=== PATIENT | female | born 1945 | race Caucasian/White ===

== ENCOUNTER 2016-08-28 11:34 | Day surgery (SDC) | payer MEDICARE, OTHER ==
--- NOTE | ~2016-08-28 | EGD ---
EGD REPORT [facility] [address] [address] NAME: STEW YOON : [birth year] [place] [facility] [place] [id number] AGE: 71 ADM/REG DATE : 08/28/16 MR#: [id number] REPORT SERV DATE: 08/28/16 DICTATED BY: ANNA MARIE CRUZ DATE: 08/28/16 REPORT STATUS : Draft TRANSCRIBED BY: [facility] DATE: 08/28/16 Endoscopy Center Patient Name: Stew Yoon Date of : 1945 Attending MD: CARLITOS CRUZ MD Procedure Date No Time: 08/28/2016 Procedure: Colonoscopy Indications: Hematochezia Referring MD: JAYANT MYRICK Medicines: See the Anesthesia note for documentation of the administered medications Complications: No immediate complications. Estimated blood loss: None. Procedure: Pre-Anesthesia Assessment: - ASA Grade Assessment: II - A patient with mild systemic disease. - Prior to the procedure, a History and Physical was performed, and patient medications and allergies were reviewed. The patient's tolerance of previous anesthesia was also reviewed. The risks and benefits of the procedure and the sedation options and risks were discussed with the patient. All questions were answered, and informed consent was obtained. Prior Anticoagulants: The patient has taken no previous anticoagulant or antiplatelet agents. After reviewing the risks and benefits, the patient was deemed in satisfactory condition to undergo the procedure. After I obtained informed consent, the scope was passed under direct vision. Throughout the procedure, the patient's blood pressure, pulse, and oxygen saturations were monitored continuously. The PCF [id number] was introduced through the anus and advanced to the cecum, identified by appendiceal orifice and ileocecal valve. The ileocecal valve, appendiceal orifice and rectum were photographed. The entire colon was examined. The colonoscopy was performed without difficulty. The patient tolerated the procedure well. The quality of the bowel preparation was adequate. Findings: The perianal and digital rectal examinations were normal. Multiple medium-mouthed diverticula were found in the entire colon. Non-bleeding internal hemorrhoids were found during retroflexion and were Grade I (internal hemorrhoids that do not prolapse). No other significant abnormalities were identified in a careful examination of the remainder of the colon. EGD REPORT [address] [address] NAME: STEW YOON : [birth year] STATUS : REG [facility]#: [id number] AGE: 71 ADM/REG DATE : 08/28/16 MR#: [id number] REPORT SERV DATE: 08/28/16 DICTATED BY: ANNA MARIE CRUZ DATE: 08/28/16 REPORT STATUS : Draft TRANSCRIBED BY: [facility] DATE: 08/28/16 Impression: - Diverticulosis in the entire examined colon. - Non-bleeding internal hemorrhoids. Recommendation: - Patient has a contact number available for emergencies. The signs and symptoms of potential delayed complications were discussed with the patient. Return to normal activities tomorrow. Written discharge instructions were provided to the patient. - High fiber diet indefinitely. - Discharge patient to home. - Continue present medications. - Repeat colonoscopy in 10 years for surveillance. Procedure Code(s): --- Professional --- 08705, Colonoscopy, flexible, proximal to splenic flexure; diagnostic, with or without collection of specimen(s) by brushing or washing, with or without colon decompression (separate procedure) Diagnosis Code(s): --- Professional --- K64.0, First degree hemorrhoids K57.30, Diverticulosis of large intestine without perforation or abscess without bleeding K92.1, Melena CPT copyright 2013 [employer]. All rights reserved. The codes documented in this report are preliminary and upon windshield technician review may be revised to meet current compliance requirements. CARLITOS CRUZ MD 08/28/2016 2:25 PM This report has been signed electronically. Number of Addenda: 0 Note Initiated On: 08/28/2016 1:43 PM Scope Withdrawal Time 0 hours 6 minutes 49 seconds [address] [address]
--- NOTE | ~2016-08-28 | EGD ---
EGD REPORT [facility] [address] [address] NAME: STEW YOON : [birth year] STATUS : REG [facility] [place] PAT#: [id number] AGE: 71 ADM/REG DATE : 08/28/16 MR#: [id number] REPORT SERV DATE: 08/28/16 DICTATED BY: ANNA MARIE CRUZ DATE: 08/28/16 REPORT STATUS : Draft TRANSCRIBED BY: [facility] DATE: 08/28/16 Endoscopy Center Patient Name: Stew Yoon Date of : 1945 Attending MD: CARLITOS CRUZ MD Procedure Date No Time: 08/28/2016 Procedure: Upper GI endoscopy Indications: Dysphagia Referring MD: JAYANT MYRICK Medicines: See the Anesthesia note for documentation of the administered medications Complications: No immediate complications. Estimated blood loss: Minimal. Procedure: Pre-Anesthesia Assessment: - ASA Grade Assessment: II - A patient with mild systemic disease. - Prior to the procedure, a History and Physical was performed, and patient medications and allergies were reviewed. The patient's tolerance of previous anesthesia was also reviewed. The risks and benefits of the procedure and the sedation options and risks were discussed with the patient. All questions were answered, and informed consent was obtained. Prior Anticoagulants: The patient has taken aspirin, last dose was 3 days prior to procedure. After reviewing the risks and benefits, the patient was deemed in satisfactory condition to undergo the procedure. After obtaining informed consent, the endoscope was passed under direct vision. Throughout the procedure, the patient's blood pressure, pulse, and oxygen saturations were monitored continuously. The GIF H190 [id number] was introduced through the mouth, and advanced to the third part of duodenum. The upper GI endoscopy was accomplished without difficulty. The patient tolerated the procedure well. Findings: The examined duodenum was normal. The entire examined stomach was normal. Biopsies were taken with a cold forceps for histology. The cardia and gastric fundus were normal on retroflexion. Diffuse mild erythema was found at the gastroesophageal junction. Biopsies were taken with a cold forceps for histology. A benign-appearing, intrinsic mild stenosis was found in the middle third of the esophagus and was traversed. A guidewire was placed and the EGD REPORT [address] [address] NAME: STEW YOON : [birth year] STATUS : REG [facility] [place] PAT#: [id number] AGE: 71 ADM/REG DATE : 08/28/16 MR#: [id number] REPORT SERV DATE: 08/28/16 DICTATED BY: ANNA MARIE CRUZ DATE: 08/28/16 REPORT STATUS : Draft TRANSCRIBED BY: [employer] DATE: 08/28/16 scope was withdrawn. Dilation was performed with a Savary dilator with no resistance at 51 Fr and mild resistance at 57 Fr. Estimated blood loss was minimal. Impression: - Normal examined duodenum. - Normal stomach. Biopsied. - Erythema at the gastroesophageal junction. Biopsied. - Benign-appearing esophageal stricture. Dilated. Recommendation: - Patient has a contact number available for emergencies. The signs and symptoms of potential delayed complications were discussed with the patient. Return to normal activities tomorrow. Written discharge instructions were provided to the patient. - Regular diet. - Discharge patient to home. - Continue present medications. - Await pathology results. Procedure Code(s): --- Professional --- 84925, Esophagogastroduodenoscopy, flexible, transoral; with insertion of guide wire followed by passage of dilator(s) through esophagus over guide wire 50698, Esophagogastroduodenoscopy, flexible, transoral; with biopsy, single or multiple Diagnosis Code(s): --- Professional --- K22.9, Disease of esophagus, unspecified K22.2, Esophageal obstruction R13.10, Dysphagia, unspecified CPT copyright 2013 [employer]. All rights reserved. The codes documented in this report are preliminary and upon activity therapy specialist review may be revised to meet current compliance requirements. CARLITOS CRUZ MD 08/28/2016 2:04 PM This report has been signed electronically. Number of Addenda: 0 Note Initiated On: 08/28/2016 1:46 PM Scope Withdrawal Time 0 hours 0 minutes 0 seconds [address] [place] [address]
[~2016-08-28 11:34] MED LIST: ASAB PO; CALTRA600D PO; CARDCD240 PO; MINIVELLE1 EAC2 TOP; PAX20 PO; PVC V; TOPXL50 PO; VITAMIN D31000 UNIT PO
== END 2016-08-28 23:59 | disposition home or self-care (01) ==
LOC: DMU 11:34
PROVIDERS: Internal Medicine Gastroenterology
PROC: 0D758ZZ Dilation of Esophagus, Via Natural or Artificial Opening Endoscopic (ICD-10-PCS; 2016-08-28)
PROC: 0DJD8ZZ Inspection of Lower Intestinal Tract, Via Natural or Artificial Opening Endoscopic (ICD-10-PCS; principal; 2016-08-28 13:00)
PROC: 0DB48ZX Excision of Esophagogastric Junction, Via Natural or Artificial Opening Endoscopic, Diagnostic (ICD-10-PCS; 2016-08-28 13:00)
PROC: 0DB68ZX Excision of Stomach, Via Natural or Artificial Opening Endoscopic, Diagnostic (ICD-10-PCS; 2016-08-28 13:00)
DX: K92.1 Melena (principal); K64.0 First degree hemorrhoids; K29.50 Unspecified chronic gastritis without bleeding; K57.30 Diverticulosis of large intestine without perforation or abscess without bleeding; K22.9 Disease of esophagus, unspecified; K22.2 Esophageal obstruction; I10 Essential (primary) hypertension; J45.909 Unspecified asthma, uncomplicated; Z98.51 Tubal ligation status; F41.9 Anxiety disorder, unspecified; F32.9 Major depressive disorder, single episode, unspecified; Z90.89 Acquired absence of other organs; Z88.2 Allergy status to sulfonamides; Z90.49 Acquired absence of other specified parts of digestive tract
CPT/HCPCS: 88305